=== PATIENT | female | born 1995 | race African-American/Black ===

== ENCOUNTER 2016-09-06 16:54 | Emergency (ER) | payer OTHER ==
[~2016-09-06] VITALS: Ht 165.1 cm; Wt 104.3 kg
[~2016-09-06 16:54] MED LIST: ACTICIN 5% CREA60 G1 TOP; ALBUTEROL INH; ALBUTEROL INHAL17 GM; AMOXICILLIN875 MG PO; AUGMENTIN 875875 MG PO; CITRATE OF MAG296 ML PO; COLACE100 MG PO; CYCLOBENZAPRINE5 MG PO; DOXYCYCLINE 10100 MG PO; FEOSOL325 M1 PO; IBUPROFEN 600600 M1 PO; KEFLEX500 MG PO; LISINOPRIL40 MG PO; MACROBID 100 M100 M1 PO; NOHOMEMEDICATIONS; NORCO 5-325 TA1 EACH PO; PERCOCET 5-3251 EACH PO; PREDNISONE 10 M10 M1 PO; PREDNISONE50 MG PO; PRENATAL; PROAIR HFA8.5 GM IH; PROVENTIL INH; VITAFOL-OB+DHA1 EACH PO; XOPENEX0.31 MG/3 IH; XOPENEX0.63 MG/3 IH
[2016-09-06 18:00] LABS: URINE BILIRUBIN NEGATIVE (Negative); URINE BLOOD NEGATIVE (Negative); URINE COLOR YELLOW; URINE GLUCOSE-RANDOM* NEGATIVE (Negative); URINE KETONES TRACE (Negative); URINE NITRITE NEGATIVE (Negative); URINE PROTEIN (DIPSTICK) NEGATIVE (Negative); URINE SPECIFIC GRAVITY 1.025 (1.003-1.035)
[2016-09-06 18:37] LABS: ABSOLUTE NEUTROPHILS 7.8 thou/uL (1.4-8.2); BASOPHILS 0.6 % (0.0-2.0); EOSINOPHILS 2.7 % (0.0-3.0); HEMATOCRIT 36.8 % (37.0-47.0); HEMOGLOBIN 12.1 gm/dL (12.0-15.0); LYMPHOCYTES 27.7 % (24.0-44.0); MANUAL DIFF NO; MCH 28.2 pg (26.0-34.0); MCHC 32.9 g/dL (28.0-37.0); MCV 85.9 fL (80.0-100.0); MONOCYTES 4.9 % (1.0-8.0); PLATELET COUNT 388 thou/uL (150-400); POLYS 64.1 % (36.0-66.0); RBC 4.28 mil/uL (4.20-5.00); RDW 14.7 % (10.5-14.5); WBC 12.2 thou/uL (4.0-11.0)
[2016-09-06 18:47] LABS: ANION GAP 11 mmol/L (7-16); BUN 11 mg/dL (7-18); CALCIUM 8.9 mg/dL (8.5-10.1); CHLORIDE 105 mmol/L (98-107); CO2 24 mmol/L (21-32); CREATININE 0.8 mg/dL (0.6-1.0); GLUCOSE 75 mg/dL (74-106); POTASSIUM 3.7 mmol/L (3.5-5.1); SODIUM 140 mmol/L (136-145)
[2016-09-06 18:53] LABS: ALBUMIN 3.8 g/dL (3.4-5.0); ALKALINE PHOSPHATASE 61 U/L (46-116); DIRECT BILIRUBIN < 0.1 mg/dL (<0.1-0.3); SGOT 27 U/L (15-37); SGPT 30 U/L (30-65); TOTAL BILIRUBIN 0.2 mg/dL (<0.1-1.0); TOTAL PROTEIN 7.9 g/dL (6.4-8.2)
[2016-09-06] MEDS ORDERED: ONDANSETRON HCL4 M2 PO (20:15)
[2016-09-06 20:22] VITALS: BP 129/70
== END 2016-09-06 20:23 | disposition home or self-care (01) ==
LOC: ER 16:54
PROVIDERS: Nurse Practitioner
DX: O26.891 Other specified pregnancy related conditions, first trimester (principal); O21.9 Vomiting of pregnancy, unspecified; J45.909 Unspecified asthma, uncomplicated; Z91.018 Allergy to other foods; Z88.1 Allergy status to other antibiotic agents; Z3A.01 Less than 8 weeks gestation of pregnancy

== ENCOUNTER 2016-12-26 14:15 | Emergency (ER) | payer OTHER ==
[~2016-12-26] VITALS: Ht 165.1 cm; Wt 98.9 kg
--- NOTE | ~2016-12-26 | EKG ---
[address] [address] ELECTROCARDIOGRAM REPORT Name: GOLDIE KELLY Room #: DEP Poornima#: [id number] Admission: 12/26/16 Attend Phys: Discharge: 12/26/16 Date of : [birth year] Report #: [id number] THIS REPORT FOR: //name// [facility] ED Test Date: 2016-12-26 Test Time: 14:23:24 Pat Name: GOLDIE KELLY Department: Room: Gender: F Respiratory Care Technician: darryl : 1995 Requested By: William Felton Order Number: [id number] MD: Chuy Zhou Measurements Intervals [place] Rate: 101 P: 30 NH: 144 QRS: 20 QRSD: 87 T: 20 QT: 339 QTc: 440 Interpretive Statements Sinus tachycardia Probable left atrial enlargement Compared to ECG 02/22/2012 14:55:58 Sinus rhythm no longer present Sinus arrhythmia no longer present Electronically Signed On 12-26-2016 16:33:27 CDT by Chuy Zhou [email or web address] <ELECTRONICALLY SIGNED> By: Chuy Zhou MD 12/26/16 1633 142 1423 Chuy Zhou MD /HEIDI
[~2016-12-26 14:15] MED LIST changes: +ONDANSETRON HCL4 M2 PO; +PRENATAL COMPL1 EACH PO
[2016-12-26 14:45] LABS: HEMOGLOBIN 11.6 gm/dL (12.0-15.0); MCH 29.3 pg (26.0-34.0); MCHC 33.2 g/dL (28.0-37.0); MCV 88.3 fL (80.0-100.0); RBC 3.96 mil/uL (4.20-5.00); RDW 14.3 % (10.5-14.5); WBC 13.4 thou/uL (4.0-11.0)
[2016-12-26 14:55] LABS: CALCIUM 8.6 mg/dL (8.5-10.1); CREATININE 0.6 mg/dL (0.6-1.0)
[2016-12-26 15:00] LABS: ALBUMIN 2.9 g/dL (3.4-5.0); TOTAL BILIRUBIN 0.2 mg/dL (<0.1-1.0)
[2016-12-26 15:03] LABS: URINE BILIRUBIN NEGATIVE (Negative); URINE BLOOD NEGATIVE (Negative); URINE COLOR YELLOW; URINE GLUCOSE-RANDOM* NEGATIVE (Negative); URINE KETONES TRACE (Negative); URINE LEUKOCYTES-REFLEX NEGATIVE (Negative); URINE PROTEIN (DIPSTICK) TRACE (Negative); URINE UROBILINOGEN 0.2 E.U./dl (0.2-1.0)
[2016-12-26 16:11] VITALS: BP 128/77
== END 2016-12-26 16:14 | disposition home or self-care (01) ==
LOC: ER 14:15
PROVIDERS: Emergency Medicine
DX: O26.892 Other specified pregnancy related conditions, second trimester (principal); R07.89 Other chest pain; J45.909 Unspecified asthma, uncomplicated; Z3A.20 20 weeks gestation of pregnancy